=== PATIENT | male | born 1945 ===

== ENCOUNTER 2016-05-02 10:07 | Day surgery (SDC) | payer SELFPAY ==
[2016-04-26 09:10] VITALS: BMI 34.3
[2016-05-02 10:30] LABS: ADD MANUAL DIFF? NO
[2016-05-02 10:42] VITALS: O2SAT 96
[2016-05-02 10:46] LABS: BASO # 0.01 K/mm3 (0.0-2.0); BASO % 0.2 % (0.0-3.0); EOS # 0.2 (0.0-0.7); EOS % 5.6 % (1.5-5.0); GRAN # 2.12 (1.4-6.5); GRAN % 51.3 % (50.0-68.0); LYMPH # 1.5 (1.2-3.4); LYMPH % 35.4 % (22.0-35.0); MEAN CELL VOLUME 88.1 fL (80.0-105.0); MEAN CORPUSCULAR HEMOGLOBIN 29.3 pg (25.0-35.0); MEAN CORPUSCULAR HGB CONC 33.3 g/dl (31.0-37.0); MEAN PLATELET VOLUME 10.2 fl (7.0-11.0); MONO # 0.3 (0.1-0.6); MONO % 7.5 % (1.0-6.0); PLATELET COUNT 222 10^3/uL (120.0-450.0); RED CELL DISTRIBUTION WIDTH 13.5 % (11.5-14.5); WHITE BLOOD COUNT 4.1 10^3/ul (4.5-11.0)
[2016-05-02 10:50] LABS: INR 0.97 (0.93-1.08); PARTIAL THROMBOPLASTIN TIME 28.1 Seconds (23.7-30.8)
[2016-05-02 11:06] LABS: ALB/GLOB RATIO 1.3 (1.1-1.8); ALKALINE PHOSPHATASE 135 U/L (38-133); ALT/SGPT 23 U/L (7-56); AST/SGOT 24 U/L (15-59); BILIRUBIN,TOTAL 0.8 mg/dL (0.2-1.3); BLOOD UREA NITROGEN 13 mg/dL (7-21); CALCIUM 9.1 mg/dL (8.4-10.5); CARBON DIOXIDE 29 mmol/L (21-33); CHLORIDE 104 mmol/L (98-107); GFR AFRICAN-AMERICAN > 60; GLUCOSE,RANDOM 98 mg/dL (70-110); POTASSIUM 4.2 mmol/L (3.6-5.0); SODIUM 143 mmol/L (132-148)
[2016-05-02] MEDS ORDERED: Propofol 10 mg/ml Inj (20 ML) ONE ×2 (12:30→13:20)
[2016-05-02] MEDS ORDERED: Midazolam 2 MG/2 ML VIAL ONE (12:30)
[2016-05-02] MEDS ORDERED: Methylene Blue 10 mg/ml (1ml) Inj ONE (12:31)
[2016-05-02] MEDS ORDERED: Glucagon Recombinant 1 mg Inj ONE (12:49)
[2016-05-02] MEDS ORDERED: Sodium Chloride 0.9% 1,000 ML IV SCH (14:30)
[2016-05-02 14:43] VITALS: BP 136/74; PULSE 62; RESP 16; TEMP 97.7
== END 2016-05-02 15:10 | disposition home or self-care (01) ==
LOC: ENDO 10:07
PROVIDERS: ATTEND Internal Medicine
DX: C7A.010 Malignant carcinoid tumor of the duodenum (principal)
CPT/HCPCS: 36415; 43254; 80053; 85025; 85610; 85730; 88305; 88342; J1610; J2250; J2704; J3010; J7040 ×2; Q9968

== ENCOUNTER 2016-06-27 09:30 | Day surgery (SDC) | payer SELFPAY ==
[2016-04-26 09:10] VITALS: BMI 34.3
== END 2016-06-27 14:57 | disposition home or self-care (01) ==
LOC: ENDO 09:30
PROVIDERS: ATTEND Internal Medicine
DX: C7A.010 Malignant carcinoid tumor of the duodenum (principal); K29.50 Unspecified chronic gastritis without bleeding; K44.9 Diaphragmatic hernia without obstruction or gangrene; Z87.81 Personal history of (healed) traumatic fracture; Z88.8 Allergy status to other drugs, medicaments and biological substances
CPT/HCPCS: 43239; 43251; 43254; 88305; 88342; J7040